=== PATIENT | female | born 1985 | race Caucasian/White ===

== ENCOUNTER 2017-02-16 18:30 | Emergency (ER) | payer OTHER ==
[2017-02-16 19:13] LABS: BASOPHILS % 0.4 (0.0-1.5); EOSINOPHILS % 1.7 % (0.0-6.8); MEAN CORPUSCULAR HEMOGLOBIN 29.2 pg (28.0-34.0); MEAN CORPUSCULAR VOLUME 89.9 fl (80.0-100.0); MONOCYTES % 2.4 % (0.0-11.0)
[2017-02-16 19:23] LABS: eGFR (African) > 60; eGFR (Non-African) > 60
[2017-02-16 19:54] VITALS: BP 149/81
--- NOTE | 2017-02-16 21:25 | ED Physician Documentation ---
Female Urogenital Problems - HISTORIAN Historian: patient - HPI Stated Complaint: "Dehydration" Chief Complaint: Female Urogenital Problems Onset: days ago (1 month ago) Further Comments: yes (31 year old female patient presents with complaint of 14 day period. Patient reports having an nexplanon placed 1 month ago. She states she has had 2 periods each lasting 12-15 days. Reports fatigue.) - Vaginal Bleeding Compared to Menstrual Periods: severe, spotting Contraceptive: other (Nexplanon) - ROS CONST: none GI/: denies: nausea, vomiting, decreased appetite, diarrhea, black stools, bloody stools, other CVS/RESP: none EYES/ENT: none MS/SKIN/LYMPH: none - PAST HX Past History: none Other History: other (bipolar) Surgeries/Procedures: Allergies/Adverse Reactions: Allergies Allergy/AdvReac Type Severity Reaction Status Date / Time divalproex sodium Allergy Intermediate Hives Verified 02/16/17 18:44 [From Depakote] Home Medications: Ambulatory Orders Medication Instructions Recorded Aripiprazole [Abilify] 10 mg PO DAILY 12/06/13 Rupert Carbonate [Rupert 300 mg PO DIRECTED 02/16/17 Carbonate ER] - SOCIAL HX Smoking History: non-smoker - FAMILY HX Family History: denies: none - VITAL SIGNS Vital Signs: Vital Signs Temp Pulse Resp BP Pulse Ox 97.1 F L 84 16 149/81 98 02/16/17 18:30 02/16/17 19:45 02/16/17 19:45 02/16/17 19:45 02/16/17 19:45 - REVIEWED ASSESSMENTS Nursing Assessment Reviewed: Yes Vitals Reviewed: Yes Progress - Progress Progress: Reviewed lab results with patient and discharge instructions. Education on dysfunctional uterine bleeding and nexplanon. Encouraged to follow up with OB/ information technology security analyst on Friday. ED Results Lab/Radiology - Lab Results Lab Results: Lab Results 02/16/17 02/16/17 18:45 18:45 WBC 9.64 K/ul K/ul (4.00-12.00) RBC 3.98 M/ul M/ul (3.90-5.20) Hgb 11.6 g/dL L g/dL (12.0-16.0) Hct 35.8 % % (34.5-46.5) MCV 89.9 fl fl (80.0-100.0) MCH 29.2 pg pg (28.0-34.0) MCHC 32.5 g/dL g/dL (30.0-36.0) RDW 13.5 % % (11.3-14.3) Plt Count 267 K/mm3 K/mm3 (130-400) Neut % (Auto) 54.5 % % (39.0-79.0) Lymph % (Auto) 39.4 % % (16.0-50.0) [place] % (Auto) 2.4 % % (0.0-11.0) Eos % (Auto) 1.7 % % (0.0-6.8) Baso % (Auto) 0.4 (0.0-1.5) Neut # Pending Lymph # Pending [place] # Pending Eos # Pending Baso # Pending Reactive Lymphs % Pending Reactive Lymphs # Pending Sodium 140 mmol/L mmol/L (136-145) Potassium 3.7 mmol/L mmol/L (3.5-5.0) Chloride 106 mmol/L mmol/L (98-110) Carbon Dioxide 30 mmol/L mmol/L (20-32) BUN 7 mg/dL L mg/dL (10-26) Creatinine 0.6 mg/dL mg/dL (0.4-1.5) Estimated Creat Clear 345 Est GFR ( Amer) > 60 (60 - ) Est GFR (Non-Af Amer) > 60 (60 - ) Glucose 143 mg/dL H mg/dL (70-99) Calcium 9.8 mg/dL mg/dL (8.5-10.5) Total Bilirubin 0.3 mg/dL mg/dL (0.2-1.2) AST 23 U/L U/L (0-41) ALT 37 U/L U/L (0-45) Alkaline Phosphatase 80 U/L U/L (46-116) Total Protein 7.6 g/dL g/dL (6.0-8.5) Albumin 4.7 g/dL g/dL (3.0-5.5) - Orders Orders: ED Orders Category Date Time Status CBC/PLATELET/DIFF Routine Lab 02/16/17 18:45 Results CMP Routine Lab 02/16/17 18:45 Completed Female Urogenital Problems - EXAM General Appearance: no acute distress, alert Respiratory: no resp. distress CVS: reg rate & rhythm, heart sounds normal, equal pulses, no murmur, no gallop , PMI nml, no JVD, no friction rub, 24 Abdomen: soft, non-tender, no organomegaly, no distention, nml bowel sounds Skin: color nml, no rash, warm,dry Neuro: oriented X3, CN's nml as tested, motor nml, sensation nml, mood/affect nml Discharge Clincal Impression: Dysfunctional uterine bleeding Referrals: Taylor Petty FNP [Primary Care Provider] - 2 Days Home Medications: Ambulatory Orders Aripiprazole [Abilify] 10 mg PO DAILY 12/06/13 Rupert Carbonate [Rupert Carbonate ER] 300 mg PO DIRECTED 02/16/17 Condition: Stable Disposition: 01 HOME, SELF-CARE Decision to Admit: NO Decision Time: 19:30
[2017-02-17 05:39] LABS: NEUTROPHILS # 5.3 # k/uL (1.4-7.7)
== END 2017-02-16 19:43 | disposition home or self-care (01) ==
LOC: ED 18:30
DX: N93.8 Other specified abnormal uterine and vaginal bleeding (principal)
CPT/HCPCS: 80053; 85025; 99283

== ENCOUNTER 2017-11-04 11:13 | Outpatient (CLI) | payer OTHER ==
--- NOTE | 2017-11-04 13:02 | Diagnostic Imaging Report ---
JOSE CARLOS JENSEN [facility] [address] [facility] [address]. [address] Report Submission Date: Nov 04, 2017 11:35:36 AM ASSOCIATE MEDICAL DIRECTOR Patient Study Name: ANGELINA SOLORZANO Date: Nov 04, 2017 11:21:32 AM ASSOCIATE MEDICAL DIRECTOR Modality Type: CR Gender: F Description: LOWER EXTREMITY : 83 Institution: [facility] Physician: JOSE CARLOS JENSEN Examination: Plain film foot History: Injury Findings: 3 views of the foot demonstrates normal cortical margins. No fracture or dislocation. Small inferior calcaneal spur. No soft tissue swelling. No joint effusion. Impression: No acute appearing osseous process. Electronically signed on Nov 04, 2017 11:35:36 AM ASSOCIATE MEDICAL DIRECTOR by: Durga SHEIKH
== END 2017-11-04 11:14 ==
LOC: RAD 11:13
PROVIDERS: ATTEND Physician Assistant
DX: M79.672 Pain in left foot (principal)
CPT/HCPCS: 73630

== ENCOUNTER 2018-02-20 15:28 | Outpatient (CLI) | payer OTHER ==
[2018-02-20 15:53] LABS: BASOPHILS % 0.2 (0.0-1.5); EOSINOPHILS % 2.1 % (0.0-6.8); MEAN CORPUSCULAR HEMOGLOBIN 29.1 pg (28.0-34.0); MEAN CORPUSCULAR VOLUME 89.1 fl (80.0-100.0); MONOCYTES % 3.2 % (0.0-11.0); NEUTROPHILS # 3.6 # k/uL (1.4-7.7)
[2018-02-20 16:17] LABS: eGFR (African) > 60; eGFR (Non-African) > 60
== END 2018-02-20 15:30 ==
LOC: LAB 15:28
PROVIDERS: ATTEND Physician Assistant
DX: R53.83 Other fatigue (principal); Z13.6 Encounter for screening for cardiovascular disorders
CPT/HCPCS: 36415; 80053; 80061; 82652; 84439; 84443; 84481; 85025

== ENCOUNTER 2018-09-22 09:57 | Outpatient (CLI) | payer OTHER ==
--- NOTE | 2018-09-22 10:19 | Diagnostic Imaging Report ---
JOSE CARLOS JENSEN [facility] [address] [facility] [address] [address] Report Submission Date: Sep 22, 2018 10:17:49 AM BAR HOST Patient Study Name: ANGELINA SOLORZANO Date: Sep 22, 2018 9:58:10 AM BAR HOST Modality Type: DX Gender: F Description: LOWER EXTREMITY : 83 Institution: [facility] Physician: JOSE CARLOS JENSEN Examination: Plain film right heel. History: CHRONIC RIGHT HEEL PAIN X 2 MONTHS. NKI, NO PREVIOUS SX. RECENT DX OF PLANTAR FASCITIS. PATIENT WAS SHIELDED IN XRAY FOR EXAM. (Hx) Comparison exams: None provided Findings: 2 views of the right heel/calcaneus demonstrates normal cortical margins. No fracture. No dislocation. Inferior calcaneal spur. No soft tissue irregularity. No joint effusion. Impression: Inferior calcaneal spur. Electronically signed on Sep 22, 2018 10:17:49 AM BAR HOST by: Durga SHEIKH
== END 2018-09-22 10:00 ==
LOC: RAD 09:57
PROVIDERS: ATTEND Physician Assistant
DX: M79.671 Pain in right foot (principal)
CPT/HCPCS: 73650

== ENCOUNTER 2018-12-25 13:59 | Outpatient (CLI) | payer OTHER | END 2018-12-25 14:02 | LOC: LAB 13:59 | PROVIDERS: ATTEND Nurse Practitioner Family | DX: N91.2 Amenorrhea, unspecified (principal) | CPT/HCPCS: 36415; 84703 ==